=== PATIENT | female | born 1950 | race Caucasian/White ===

== ENCOUNTER 2016-05-01 10:12 | Emergency (ER) | payer OTHER | END 2016-05-01 11:20 | disposition home or self-care (01) | LOC: D.ER 10:12 | DX: G43.909 Migraine, unspecified, not intractable, without status migrainosus (principal); I10 Essential (primary) hypertension; H91.92 Unspecified hearing loss, left ear; J44.9 Chronic obstructive pulmonary disease, unspecified; F03.90 Unspecified dementia, unspecified severity, without behavioral disturbance, psychotic disturbance, mood disturbance, and anxiety; M79.7 Fibromyalgia ==

== ENCOUNTER → 2016-09-22 09:26 | Outpatient (CLI) | payer MEDICARE | LOC: D.MRI 09-19 13:02 | DX: G91.2 (Idiopathic) normal pressure hydrocephalus (principal); G43.809 Other migraine, not intractable, without status migrainosus; G30.8 Other Alzheimer's disease ==

== ENCOUNTER 2017-08-15 08:00 | Outpatient (CLI) | payer MEDICARE ==
[2017-10-24 08:31] VITALS: BMI 29.7
== END 2017-08-15 11:09 | disposition home or self-care (01) ==
LOC: D.MAMMO 08:00
DX: Z12.31 Encounter for screening mammogram for malignant neoplasm of breast (principal)

== ENCOUNTER 2017-10-10 08:30 | Outpatient (CLI) | payer MEDICARE ==
[2017-10-24 08:31] VITALS: BMI 29.7
== END 2017-10-10 10:05 ==
LOC: D.OPS 08:30 → D.RAD 10:00 → D.OPS 10:05
DX: R10.13 Epigastric pain (principal)

== ENCOUNTER 2017-10-24 07:26 | Day surgery (SDC) | payer MEDICARE ==
[~2017-10-24] VITALS: Ht 158.8 cm; Wt 75.0 kg
--- NOTE | ~2017-10-24 | OP ---
PATIENT NAME: RUFUS MI MEDICAL RECORD: [id number] :46 LOCATION:D.OPS ADMISSION DATE: SURGEON: GAB STEEN MD DATE OF OPERATION: 10/24/2017 PREOPERATIVE DIAGNOSES: 1. Gastroesophageal reflux, intractable. 2. Volume gastroesophageal reflux. 3. Dysphagia at the level of the cricopharyngeus. POSTOPERATIVE DIAGNOSES: 1. Gastroesophageal reflux, intractable. 2. Volume gastroesophageal reflux. 3. Moderate gastritis with erosions. 4. Small hiatal hernia. 5. Prepyloric semi-pedunculated gastric polyp, 2.3 cm. 6. 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 7. Dysphagia at the level of the cricopharyngeus. PROCEDURES: 1. Esophagogastroduodenoscopy with antral and distal esophageal biopsies. 2. Polypectomy utilizing endoscopic mucosal resection technique of the prepyloric semi-pedunculated polyp. 3. Three endoscopic clips were deployed at the EMR site. 4. Esophageal dilation with rqdpvpq-kmp-ziwliekn balloon to 60-Norwegian. SURGEON: Gab Steen MD GUIDE RAIL CLEANER: None. BLOOD LOSS: Minimal. ANESTHESIA: IV sedation. COMPLICATIONS: None. The reason for the anesthesia staff being present during the procedure includes the possibility of the need for airway manipulation, which was necessary during the operative procedure. The patient had volume reflux and had some regurgitation of fluid material that was bilious-stained during the endoscopic procedure. ENDOSCOPIC COURSE: The patient was conveyed to endoscopy suite electively on 10/24/2017. IV sedation was induced by the anesthesia staff. A bite-block was inserted. A gastroscope was inserted into the mouth. It was advanced easily into the hypopharynx. The esophagus was easily intubated as were the stomach and duodenum. Upon withdrawal, retroflexed and angulus views were obtained. Antral biopsies were obtained. I withdrew the cardia of the stomach. I advanced a ocvhxpv-nqs-srbhsoxg balloon. I sequentially dilated the entire length of the esophagus to 60-Norwegian. The gastroscope and balloon were removed. I then readvanced to get the gastroscope. Distal esophageal biopsies were obtained to rule out Sanders's esophagus. OPERATIVE REPORT [id number] RUFUS MI I then advanced a sclerotherapy needle. I advanced it and injected submucosally into the prepyloric polyp. A good pillow of epinephrine occurred. I advanced an endoscopic snare. I was then able to snare the polyp completely utilizing the endoscopic mucosal resection technique. The snared polyp was grasped with an endoscopic retrieval net and was withdrawn out through the mouth. I then readvanced the gastroscope. I advanced it to the area of the endoscopic mucosal resection. It was a pretty large defect and it was not full thickness; however, I was worried about a delayed gastric perforation. For this reason, I decided to reinforce the area by deploying a row of 3 endoscopic clips. I was satisfied with the deployment of these clips. The gastroscope was then withdrawn under direct vision. The patient was then conveyed back to her room. I will see her in the office in 2 to 3 weeks. I think she will be a good candidate for a laparoscopic hiatal hernia repair and an antireflux procedure performed at the same time. TRANSINT:[id number] Voice Confirmation ID: [id number] DOCUMENT ID: [id number] GAB STEEN MD at 2127 CC: DAVID ALVAREZ MD [id number] DICTATION DATE: 10/24/17 1632 TRAVEL ASSISTANT: 10/24/17 1655 [facility] 10/24/17 [facility] [address] [place] [address]
--- NOTE | ~2017-10-24 | HP ---
PATIENT: RUFUS MI MEDICAL RECORD: [id number] ACCOUNT: [id number] LOCATION:HAWA : 46 ADMISSION DATE: 10/24/17 PCP: DAVID ALVAREZ MD HISTORY AND PHYSICAL EXAMINATION CHIEF COMPLAINT: Gastroesophageal reflux. HISTORY OF PRESENT ILLNESS: The patient is a volume refluxer. She states she wakes up in the middle of the night with a bitter taste in her mouth or some fluid or food around her mouth. She is here in preparation for a hiatal hernia repair. The patient also has some dysphagia. The risks, possible complications and alternatives to procedure were explained to the patient. She elects to proceed. ALLERGIES: No known drug allergies. HOME MEDICATIONS: Depakote, DuoNeb, Nexium, Prozac, metoprolol. SOCIAL HISTORY: Nonsmoker. PAST MEDICAL AND SURGICAL HISTORY: COPD; sleep apnea, not on CPAP; hypertension; questionable heart rhythm problems; history of CVA 20 years ago; seizures; hiatal hernia and gastroesophageal reflux which is not controlled. She has got history of cholecystectomy; history of tonsillectomy and adenoidectomy; history of a brain shunt; history of artificial ear drum; probably esophageal dilation as well. REVIEW OF SYSTEMS: Negative for angina, myocardial infarction, CABG or coronary stents. PHYSICAL EXAMINATION: GENERAL: The patient does not appear acutely ill. She does appear chronically ill. EARS: External ears appear normal. EYES: Extraocular movements are intact. NECK: Trachea is midline. CHEST: No intercostal retractions. PULMONARY: Nonlabored, no stridor. IMPRESSION: 1. Gastroesophageal reflux, not controlled. 2. Volume reflux. PLAN: Will be EGD. TRANSINT:[id number] Voice Confirmation ID: [id number] DOCUMENT ID: [id number] HISTORY AND PHYSICAL [id number] RUFUS MI ROBERT MD at 2126 CC: DAVID ALVAREZ MD [id number] DICTATION DATE: 10/24/17 1032 NURSE PLASTICS: 10/24/17 1053 [facility] 10/24/17 [place] [id number]
[2017-10-24] MEDS ORDERED: DEPAKOTE250 MG PO (08:18)
[2017-10-24] MEDS ORDERED: PROZAC40 MG PO (08:18)
[2017-10-24] MEDS ORDERED: NEXIUM40 MG PO (08:18)
[2017-10-24] MEDS ORDERED: MEMANTINE HCL (08:18)
[2017-10-24] MEDS ORDERED: IPRAT-ALBUT 0.5-3 ML UPD (08:19)
[2017-10-24] MEDS ORDERED: TOPROL XL25 MG (08:20)
[2017-10-24 08:31] VITALS: BP 137/74; Ht 158.8 cm; Wt 75.0 kg
[2017-10-24 08:34] LABS: HEMATOCRIT 38.9 % (36.0-48.0); HEMOGLOBIN 12.9 g/dL (12-16); MCH 29.7 pg (26.0-34.0); MCHC 33.2 g/dL (31.0-37.0); MCV 89.4 fL (80.0-100.0); MEAN PLATELET VOLUME 11.2 fL (7.4-10.4); RBC 4.35 10x6/uL (4.00-5.40); RDW 13.9 % (11.5-14.5); WBC 6.8 10x3/uL (4.8-10.8)
== END 2017-10-24 12:15 | disposition home or self-care (01) ==
LOC: D.OPS 07:26
PROVIDERS: Anesthesiology
DX: K21.0 Gastro-esophageal reflux disease with esophagitis (principal); K44.9 Diaphragmatic hernia without obstruction or gangrene; K25.9 Gastric ulcer, unspecified as acute or chronic, without hemorrhage or perforation; K31.7 Polyp of stomach and duodenum; R13.19 Other dysphagia; J44.9 Chronic obstructive pulmonary disease, unspecified; G47.30 Sleep apnea, unspecified; I10 Essential (primary) hypertension; Z86.73 Personal history of transient ischemic attack (TIA), and cerebral infarction without residual deficits; R56.9 Unspecified convulsions; Z79.899 Other long term (current) drug therapy; Z01.812 Encounter for preprocedural laboratory examination

== ENCOUNTER 2018-03-14 15:37 | Inpatient (IN) | payer MEDICARE ==
[~2018-03-14] VITALS: Ht 157.5 cm; Wt 72.6 kg
[~2018-03-14 15:37] MED LIST: DEPAKOTE250 MG PO; IPRAT-ALBUT 0.5-3 ML UPD; MEMANTINE HCL; NEXIUM40 MG PO; PROZAC40 MG PO; TOPROL XL25 MG
[2018-03-15] MEDS ORDERED: SYMBICORT 16010.2 GM INH (15:39)
[2018-03-15 16:51] LABS: HEMATOCRIT 37.5 % (36.0-48.0); HEMOGLOBIN 12.4 g/dL (12-16); MCH 28.9 pg (26.0-34.0); MCHC 33.1 g/dL (31.0-37.0); MCV 87.4 fL (80.0-100.0); MEAN PLATELET VOLUME 10.7 fL (7.4-10.4); RBC 4.29 10x6/uL (4.00-5.40); RDW 14.4 % (11.5-14.5); WBC 8.3 10x3/uL (4.8-10.8)
[2018-03-19] MEDS ORDERED: NAMENDA XR28 MG PO (06:15)
[2018-03-19 06:16] VITALS: BP 129/89; BMI 30.2
[2018-03-19 11:38] LABS: BASOPHILS 0.2 % (0-2); EOSINOPHILS 0.2 % (0-7); HEMATOCRIT 43.5 % (36.0-48.0); HEMOGLOBIN 14.2 g/dL (12-16); IMMATURE GRANULOCYTES 0.4 % (0-5); LYMPHOCYTES 8.9 % (15-50); MCH 27.7 pg (26.0-34.0); MCHC 32.6 g/dL (31.0-37.0); MCV 84.8 fL (80.0-100.0); MEAN PLATELET VOLUME 10.8 fL (7.4-10.4); NEUTROPHILS 88.3 % (40-80); RBC 5.13 10x6/uL (4.00-5.40); WBC 19.7 10x3/uL (4.8-10.8)
[2018-03-19 11:48] LABS: PLATELET COUNT 144 10x3/uL (130-400)
[2018-03-19 14:26] VITALS: BP 130/70; Ht 157.5 cm; Wt 72.6 kg
[2018-03-19 15:57] LABS: BASOPHILS 0.1 % (0-2); EOSINOPHILS 0 % (0-7); HEMATOCRIT 45.4 % (36.0-48.0); HEMOGLOBIN 15.1 g/dL (12-16); IMMATURE GRANULOCYTES 0.3 % (0-5); LYMPHOCYTES 5.1 % (15-50); MCH 27.9 pg (26.0-34.0); MCHC 33.3 g/dL (31.0-37.0); MCV 83.8 fL (80.0-100.0); MEAN PLATELET VOLUME 11.4 fL (7.4-10.4); MONOCYTES 2.1 % (2-11); NEUTROPHILS 92.4 % (40-80); PLATELET COUNT 161 10x3/uL (130-400); RBC 5.42 10x6/uL (4.00-5.40); RDW 15.4 % (11.5-14.5); WBC 15.6 10x3/uL (4.8-10.8)
[2018-03-19 20:00] VITALS: BP 129/81
--- NOTE | 2018-03-19 20:00 | NUR ---
PT IS RESTING IN BED WITH EYES OPEN. ALERT AND ORIENTED X 3. DENIES ACUTE DISCOMFORT AT THIS TIME. EDNA DRAIN TO LEFT SIDE IS PATENT AND DRAINING A SMALL AMOUNT OF LIQUID. IV INFUSING TO RFA WITHOUT DIFFICULTY. DILAUDID SIDE SAWYER IN USE FOR PAIN CONTROL. SR'S ARE UP X 3 IN BED. CALL LIGHT AND BEDSIDE TABLE ARE WITHIN EASY REACH.
--- NOTE | 2018-03-19 22:24 | NUR ---
PT IS RESTING QUIETLY IN BED WITH EYES CLOSED. NO DISTRESS NOTED. IS AT THE BEDSIDE.
--- NOTE | 2018-03-20 00:52 | NUR ---
PT RESTING IN BED WITH EYES OPEN. VOICED COMPLAINT OF BEING HUNGRY. I EXPLAINED THAT SHE WAS NPO BY DELROY GUILLAUME. SHE WAS NOT HAPPY, BUT VOICED UNDERSTANDING OF THIS.
--- NOTE | 2018-03-20 03:23 | NUR ---
PT RESTING QUIETLY IN BED WITH EYES CLOSED.
[2018-03-20 04:00] VITALS: BP 139/83
[2018-03-20 07:41] VITALS: BP 139/77
--- NOTE | 2018-03-20 08:00 | NUR ---
PATIENT POST OP DAY ONE HERNIA REPAIR. EDNA DRAIN IN PLACE, INCISIONS WITH NO DRAINAGE.
[2018-03-20 08:30] VITALS: BP 139/77
--- NOTE | 2018-03-20 10:00 | NUR ---
EDNA DRAIN PULLED, PATINET TOLERATED WELL. COVERED WITH 4X4 AND TAPE
[2018-03-20] MEDS ORDERED: HYDROCODON-ACE1 EA10 PO (10:19)
--- NOTE | 2018-03-20 13:22 | MORECARE ---
CASE MANAGEMENT DISCHARGE SUMMARY PATIENT: RUFUS MI UNIT: [id number] ADM DATE: 03/19/18 AGE: 67 : 48 SEX: F ROOM/BED: D.2229 AUTHOR: DESHAUN TIWARI PHYSICIAN: REFERRING PHYSICIAN: JOSEPH STEEN MD DATE OF SERVICE: 03/20/18 Discharge Plan Patient Name: RUFUS MI Facility: [facility]:[place] : 1950 Planned Disposition: Home Anticipated Discharge Date: 03/20/18 Discharge Date: Expected LOS: 1 Initial Reviewer: [email or web address] Initial Review Date: 03/20/2018 Generated: 03/20/18 2:22 pm DCPIA - Discharge Planning Initial Assessment Updated by [email or web address]: Erma Espinosa on 03/20/18 1:21 pm * Is the patient Alert and Oriented? Yes * How many steps to enter\exit or inside your home? 5/0 * PCP Dr. Tobar * Pharmacy [facility] on [facility] * Preadmission Environment Home with Family * ADLs Partial Dependent * Partial ADLs (Assistance needed) Ambulation Medication Management * Equipment Cane * List name and contact numbers for known caregivers / representatives who currently or will assist patient after discharge: Efren Mi - [facility] - [phone] * Verbal permission to speak to the caregivers and representatives has been obtained from the patient. Yes * Community resources currently utilized None * Additional services required to return to the preadmission environment? No * Can the patient safely return to the preadmission environment? Yes * Has this patient been hospitalized within the prior 30 days at any hospital? No Patient Name: RUFUS MI Page [id number] at 1322 All edits/amendments must be made on the electronic document DICTATION DATE: 03/20/18 1322 PUNCH MACHINE HAND: DARWIN 03/20/18 1322 RPT#: [id number] DC DATE: STATUS: ADM IN [facility] [address] [place] [address] END OF REPORT
--- NOTE | 2018-03-20 13:41 | MORECARE ---
CASE MANAGEMENT DISCHARGE SUMMARY PATIENT: RUFUS MI UNIT: [id number] ADM DATE: 03/19/18 AGE: 67 : 48 SEX: F ROOM/BED: D.2229 AUTHOR: TEDOC PHYSICIAN: REFERRING PHYSICIAN: JOSEPH STEEN MD DATE OF SERVICE: 03/20/18 Discharge Plan Patient Name: RUFUS MI Facility: [facility]:[place] : 1950 Planned Disposition: Home Anticipated Discharge Date: 03/20/18 Discharge Date: Expected LOS: 1 Initial Reviewer: [email or web address] Initial Review Date: 03/20/2018 Generated: 03/20/18 2:41 pm Comments DCP- Discharge Planning Updated by [email or web address]: Erma Espinosa on 03/20/18 12:[address] Patient Name: RUFUS MI Admission Status: Elective Accout number: [id number] Admission Date: 03-19-2018 : 1950 Admission Diagnosis: Attending: JOSEPH STEEN Current LOS: 1 Anticipated DC Date: 03-20-2018 Planned Disposition: Home Primary Insurance: [employer] CHOICE PPO MCR ADVANT Discharge Planning Comments: CM met with patient and her to discuss discharge planning, States she lives with her . States her drives her where she needs to go and sets up her medication, otherwise she is independent. Discussed availability of rehab, home health and DME. States her plan is to return home with her , denies need for home health or DME. CM will continue to follow and assist with discharge planning/needing. Photo Journalist: Erma Espinosa DCPIA - Discharge Planning Initial Assessment Updated by [email or web address]: Erma Espinosa on 03/20/18 1:21 pm * Is the patient Alert and Oriented? Yes * How many steps to enter\exit or inside your home? 5/0 * PCP Dr. Tobar * Pharmacy [facility] [address] * Preadmission Environment Home with Family * ADLs Partial Dependent * Partial ADLs (Assistance needed) Ambulation Medication Management * Equipment Cane * List name and contact numbers for known caregivers / representatives who currently or will assist patient after discharge: Efren Mi - - [phone] * Verbal permission to speak to the caregivers and representatives has been obtained from the patient. Yes * Community resources currently utilized None * Additional services required to return to the preadmission environment? No * Can the patient safely return to the preadmission environment? Yes * Has this patient been hospitalized within the prior 30 days at any hospital? No Last DP export: 03/20/18 12:22 pm Patient Name: RUFUS MI Page [id number] at 1341 All edits/amendments must be made on the electronic document DICTATION DATE: 03/20/18 1341 LOCOMOTIVE SUPERVISOR: DARWIN 03/20/18 1341 RPT#: [id number] DC DATE: STATUS: ADM IN [facility] [address] [place] [address] END OF REPORT
--- NOTE | 2018-03-20 16:18 | NUR ---
IV REMOVED FROM RIGHT WRIST, CATH INTACT, NO REDNESS OR EDEMA AT SITE. DISCHARGE INSTRUCTIONS ALONG WITH WRITTEN NARCOTIC PRESCRIPTION GIVEN TO PATIENT. PATIENT VOICED UNDERSTANDING OF DISCHARGE INSTRUCTIONS. PATIENT TAKEN TO PRIVATE CAR VIA WHEELCHAIR, TRANSPORTING PATIENT HOME
--- NOTE | 2018-03-20 19:23 | OP ---
PATIENT NAME: RUFUS MI MEDICAL RECORD: [id number] :46 LOCATION:D.MS [id number] ADMISSION DATE:03/19/18 SURGEON: JOSEPH STEEN MD DATE OF OPERATION: 03/19/2018 PREOPERATIVE DIAGNOSES: 1. Paraesophageal hernia. 2. Volume gastroesophageal reflux. 3. Intractable gastroesophageal reflux. POSTOPERATIVE DIAGNOSES: 1. Paraesophageal hernia. 2. Volume gastroesophageal reflux. 3. Intractable gastroesophageal reflux. 4. Bleeding from the splenic hilum. PROCEDURE: 1. Laparoscopic paraesophageal hernia repair. 2. Laparoscopic Cat fundoplication. SURGEON: Joseph Steen MD ASSISTANTS: 1. Rui Chatman MD (JJ) 2. [place] APN BLOOD LOSS: 1500 cc. ANESTHESIA: General. DRAINS: 10-Surinamese closed suction drainage system. OPERATIVE FINDINGS: The stomach and the spleen were very tightly in apposition and when these structures bleeding was encountered. This was from some large short gastrics. Further dissection in this area produced only more bleeding; however, we were able to control this laparoscopically. OPERATIVE COURSE: The patient was conveyed the operating room electively on 03/19/2018. General anesthesia was induced by the anesthesia staff. The abdomen was sterilely prepped and draped. A transverse incision was accomplished above the umbilicus. Utilizing the PetCoach device, I entered the peritoneal cavity sharply with an 11-mm trocar. CO2 insufflation was begun. Once a sufficient pneumoperitoneum had been achieved utilizing the television camera, two 5-mm trocars were inserted in the left side of the abdomen. A 12-mm trocar and another 5-mm trocar were inserted in the right side of the abdomen. Through an incision just to the left of the xiphoid process, the Afia retractor was inserted. A Afia retractor was then positioned and used to elevate the left lateral segment of the liver. We placed the patient in reverse Trendelenburg. We began taking down the short gastrics along the upper portion of the greater curve of the stomach. The stomach was really adherent to the medial aspect of the spleen and during the dissection off the stomach with Harmonic scalpel, some bleeding was encountered. OPERATIVE REPORT [id number] RUFUS MI This was bleeding from the short gastric vessels from the spleen. We tried to control these with metallic clips as well as with the Harmonic scalpel and unfortunately this produced only more bleeding. We packed off the area with a sponge and then suctioned and applied additional clips to some hilar vessels in the spleen. We then placed some Nu-Knit around the spleen. There was significant bleeding as is described above. Once the bleeding had stopped, we went and continued our dissection of the paraesophageal hernia. The hepatogastric ligament was taken down with the Harmonic scalpel. The phrenicoesophageal ligament was taken down with Harmonic scalpel. A retroesophageal window was created bluntly. We dissected up in the mediastinum removing the paraesophageal hernia sac. The EG junction fat pad was then removed through dissection utilizing the Harmonic scalpel. Once I was satisfied with the length of intra-abdominal esophagus, we closed the hernia defect posteriorly with the 0 Stratafix device, which was a Prolene. This was a 3 suture closure of the hiatal hernia posteriorly. We then went about performing the antireflux procedure. I reached around behind the esophagus, grasped the fundus of the stomach and then anteriorly performed a 3 stitch repair utilizing a 3-0 Stratafix on PDS plus. This was a suture from fundus to fundus anteriorly over the distal portion of the esophagus. We changed out the Nu-Knit at the splenic hilum for another piece of Nu-Knit. There was no further bleeding. A 10-Surinamese closed suction drainage system was then advanced and placed under the left diaphragm. This was an indicator drain. The drain was sutured to skin with a 2-0 nylon. The fascia at the 12-mm trocar and 11-mm trocar sites were closed with the Dandre-Wali suture closure device and 0 Vicryl sutures. All the trocars removed and the abdomen desufflated. The skin incisions were closed with interrupted intracuticular 3-0 and 4-0 Vicryls. Benzoin and Steri-Strips were applied. The patient was then extubated and conveyed to post-anesthesia care unit where she was in stable condition. TRANSINT:[id number] Voice Confirmation ID: [id number] DOCUMENT ID: [id number] 03/20/2018 Edited for it consulting manager errors, [place]. JOSEPH STEEN MD at 1923 CC: [id number] DICTATION DATE: 03/19/18 1161 MARKER SHIPMENTS: 03/19/18 1451 DIS IN 03/20/18 [facility] [address] [place] [address]
--- NOTE | 2018-03-22 16:55 | MORECARE ---
CASE MANAGEMENT DISCHARGE SUMMARY PATIENT: RUFUS MI UNIT: [id number] ADM DATE: 03/19/18 AGE: 67 : 48 SEX: F ROOM/BED: D.2229 AUTHOR: TE,DOC PHYSICIAN: REFERRING PHYSICIAN: JOSEPH STEEN MD DATE OF SERVICE: 03/22/18 Discharge Plan Patient Name: RUFUS MI Facility: [facility]:[place] : 1950 Planned Disposition: Home Anticipated Discharge Date: 03/20/18 Discharge Date: 03/20/2018 Expected LOS: 1 Initial Reviewer: [email or web address] Initial Review Date: 03/20/2018 Generated: 03/22/18 5:54 pm DCP- Discharge Planning Updated by [email or web address]: Erma Espinosa on 03/20/18 12:[address] Patient Name: RUFUS MI Admission Status: Elective Accout number: [id number] Admission Date: 03-19-2018 : 1950 Admission Diagnosis: Attending: JOSEPH STEEN Current LOS: 1 Anticipated DC Date: 03-20-2018 Planned Disposition: Home Primary Insurance: [employer] CHOICE PPO MCR ADVANT Discharge Planning Comments: CM met with patient and her to discuss discharge planning, States she lives with her . States her drives her where she needs to go and sets up her medication, otherwise she is independent. Discussed availability of rehab, home health and DME. States her plan is to return home with her , denies need for home health or DME. CM will continue to follow and assist with discharge planning/needing. Counter Maker: Erma Espinosa DCPIA - Discharge Planning Initial Assessment Updated by [email or web address]: Erma Espinosa on 03/20/18 1:21 pm * Is the patient Alert and Oriented? Yes * How many steps to enter\exit or inside your home? 5/0 * PCP Dr. Tobar * Pharmacy [facility] [address] * Preadmission Environment Home with Family * ADLs Partial Dependent * Partial ADLs (Assistance needed) Ambulation Medication Management * Equipment Cane * List name and contact numbers for known caregivers / representatives who currently or will assist patient after discharge: Efren Mi - - [phone] * Verbal permission to speak to the caregivers and representatives has been obtained from the patient. Yes * Community resources currently utilized None * Additional services required to return to the preadmission environment? No * Can the patient safely return to the preadmission environment? Yes * Has this patient been hospitalized within the prior 30 days at any hospital? No Last DP export: 03/20/18 12:41 pm Patient Name: RUFUS MI Page [phone] at 1655 All edits/amendments must be made on the electronic document DICTATION DATE: 03/22/181653 MOVIE WRITER: DARWIN 03/22/181653 RPT#: [id number] DC DATE:03/20/18 STATUS: DIS IN [facility] [address] [place] [address] END OF REPORT
== END 2018-03-20 16:21 | disposition home or self-care (01) | DRG 328 ==
LOC: D.MS 03-19 05:40 → D.SDCHOLD 03-19 05:40 → D.MS 03-19 12:03
PROVIDERS: Anesthesiology; ADMIT Surgery
PROC: 0BQT4ZZ Repair Diaphragm, Percutaneous Endoscopic Approach (ICD-10-PCS; principal; 2018-03-19 08:00)
PROC: 0DV44ZZ Restriction of Esophagogastric Junction, Percutaneous Endoscopic Approach (ICD-10-PCS; 2018-03-19 08:00)
DX: K44.9 Diaphragmatic hernia without obstruction or gangrene (principal); K21.9 Gastro-esophageal reflux disease without esophagitis